=== PATIENT | male | born 1975 | race Caucasian/White ===

== ENCOUNTER → 2016-10-09 | Outpatient (REF) | payer OTHER | LOC: M SMT 10:00 | PROVIDERS: ATTEND Urology | DX: Z30.2 Encounter for sterilization (principal) ==

== ENCOUNTER → 2016-12-05 | Outpatient (REF) | payer OTHER ==
[2016-12-05 10:16] LABS: IMMOTILE SPERM ABSENT (ABSENT); MOTILE SPERM ABSENT (ABSENT); MOTILE SPERM CENTRIFUGED ABSENT (ABSENT)
[2016-12-05 10:17] LABS: IMMMOTILE SPERM CENTRIFUGED ABSENT (ABSENT)
== END ==
LOC: M SMT 08:54
PROVIDERS: ATTEND Urology
DX: Z30.2 Encounter for sterilization (principal)